=== PATIENT | female | born 1980 | race American Indian/Alaskan Native ===

== ENCOUNTER 2020-12-22 19:56 | Emergency (ER) | payer OTHER ==
[~2020-12-22] VITALS: Ht 162.6 cm; Wt 99.8 kg
[2020-12-22 23:00] VITALS: BP 145/94
== END 2020-12-22 23:52 | disposition home or self-care (01) ==
LOC: ER 19:56
DX: T19.2XXA Foreign body in vulva and vagina, initial encounter (principal); E66.9 Obesity, unspecified; Z68.37 Body mass index [BMI] 37.0-37.9, adult; X58.XXXA Exposure to other specified factors, initial encounter; Y93.89 Activity, other specified; Y92.89 Other specified places as the place of occurrence of the external cause; Y99.8 Other external cause status

== ENCOUNTER 2021-05-14 21:19 | Emergency (ER) | payer OTHER ==
[~2021-05-14] VITALS: Ht 160 cm; Wt 95.3 kg
[2021-05-14 21:21] VITALS: BP 123/87
== END 2021-05-15 02:24 | disposition left against medical advice (07) ==
LOC: ER 21:19
DX: L02.512 Cutaneous abscess of left hand (principal); Z53.21 Procedure and treatment not carried out due to patient leaving prior to being seen by health care provider

== ENCOUNTER 2023-04-22 11:02 | Emergency (ER) | payer SELFPAY ==
[~2023-04-22] VITALS: Ht 162.6 cm; Wt 82.2 kg
[2023-04-22 11:58] VITALS: BP 134/88; PULSE 117; RESP 17; TEMP 98.6; O2SAT 95
[2023-04-22] MEDS ORDERED: PRED20TA2 PO (13:21)
[2023-04-22] MEDS ORDERED: MELO7.5T7 PO (13:21)
[2023-04-22] MEDS ORDERED: methylPREDNISolone SOD SUCC 125 MG/2 ML VL IM ONE (13:30)
[2023-04-22] MEDS ORDERED: KETOROLAC TROMETH 60MG/2ML VIAL IM ONE (13:30)
== END 2023-04-22 13:21 | disposition home or self-care (01) ==
LOC: ER 11:02
DX: M54.31 Sciatica, right side (principal); Z79.899 Other long term (current) drug therapy
CPT/HCPCS: 96372; 99284; J1885; J2930